=== PATIENT | female | born 1935 ===

== ENCOUNTER 2016-12-16 08:58 | Inpatient (IN) | payer MEDICARE, OTHER ==
[~2016-12-16] VITALS: Ht 167.6 cm; Wt 59.8 kg
--- NOTE | ~2016-12-16 | HP ---
PATIENT'S NAME: MAE MCARTHUR [facility] AGE: 81 Y [address] ROOM: [id number] [place], [place] [address] LOCATION: [facility] ADMIT DATE: 12/16/2016 History & Physical DISCHARGE DATE: FAMILY PHYSICIAN: Leda Peter MD ATTENDING PHYSICIAN: Bruce HAWKINS DATE OF SERVICE: CHIEF COMPLAINT: Diarrhea. HISTORY OF PRESENT ILLNESS: The patient is a 81-year-old female with a recent diagnosis of metastatic melanoma, diabetes mellitus, atrial fibrillation, history of DVT and PE, and TIA, who presents here to our emergency department with one-day history of acute diarrhea and weakness. The patient reports that since yesterday, she has been experiencing close to 15 bouts of diarrhea. She reports that her diarrhea started off with dark stool. For her diarrhea, the patient started using Pepto-Bismol and reports that her diarrhea has not gotten better and reports that her stool has gotten darker. She reports that prior to her diarrhea, she had chicken and rice that was cooked appropriately. She denies any sick contact, recent use of antibiotics, recent travel, and a drink from fresh water. She reports that her last antibiotic use was three months ago. The patient was unable to remember what antibiotic she took. The patient reports of mild abdominal discomfort, but denies pain, and she also denies fever, chills, nausea, vomiting, chest pain, shortness of breath, or dizziness. She reports that ever since her bouts of diarrhea, she has been feeling a little bit weak. The patient reports that she was recently diagnosed with metastatic melanoma after she was found to have a right groin lymph node. Right groin lymph node was biopsied and was found to be melanoma. The patient did not want to do any further treatment and was at one point, on with hospice care. However, since her condition did not get worse, she is out of hospice currently. The patient reports that she has had EGD a month ago and reports that it was not abnormal as much as she can remember and her last colonoscopy was a few years ago. Of note, the patient reports of a recent fall a few weeks ago and reports that she hit her right chest wall. She was evaluated by her PCP, with x-ray which did not show any fractures. The patient also reports that her Coumadin has not been therapeutic lately and reports that her last INR 3 weeks ago was 4.9. MEDICAL HISTORY: PATIENT'S NAME: MAE MCARTH[facility] AGE: 81 Y [address] ROOM: [address] [address] LOCATION: [facility] ADMIT DATE: 12/16/2016 History & Physical DISCHARGE DATE: FAMILY PHYSICIAN: Leda Peter MD ATTENDING PHYSICIAN: Bruce HAWKINS 1. Obstructive sleep apnea. 2. Diabetes mellitus, type 2. 3. Atrial fibrillation. 4. GERD. 5. Hyperlipidemia. 6. Anxiety. 7. Hard of hearing. 8. History of DVT and PE. 9. TIA. 10. Melanoma. PAST SURGICAL HISTORY: 1. Colonoscopy. 2. EGD. 3. Appendectomy. 4. Hernia repair. 5. Back surgery. 6. Right groin lymph node excision and biopsy. FAMILY HISTORY: Father had heart disease, and mother from stroke. SOCIAL HISTORY: The patient is a retired teacher. Has a distant history of smoking, but has not had smoked for 50 years and reports of occasional wine drinking. She has two kids and lives with her . MEDICATIONS: 1. [place] 5/325, 1 to 2 tablets p.o. every 4 hours. 2. Lipitor 40 mg p.o. nightly. 3. Calcium carbonate/vitamin D3, 600 mg p.o. daily. 4. Clonazepam 0.5 mg p.o. taken at nighttime. 5. Folbic tablets 1 tablet p.o. daily. 6. Bentyl 20 mg tablets taken with meal. 7. Lantus 15 units q.a.m. 8. Lisinopril 2.5 mg tablets p.o. daily. 9. Remeron 30 mg tablets taken at night. 10. Prilosec 20 mg p.o. daily. 11. Effexor XR 150 mg capsule, extended release in 24 hours. 12. Coumadin 5 mg taken once a day for 5 days and Coumadin 2.5 mg taken once a day for 2 days in a week. REVIEW OF SYSTEMS: All systems have been reviewed and are negative except for what was mentioned in the HPI. PATIENT'S NAME: MAE MCARTH[facility] AGE: 81 Y [address] ROOM: [facility] [place], [place] [address] LOCATION: [facility] ADMIT DATE: 12/16/2016 History & Physical DISCHARGE DATE: FAMILY PHYSICIAN: Leda Peter MD ATTENDING PHYSICIAN: Bruce HAWKINS PHYSICAL EXAMINATION: VITAL SIGNS: Temperature of 99.3 Fahrenheit, blood pressure of 124/81, heart rate of 96, respiratory rate 16, and patient is saturating 95% on room air. GENERAL APPEARANCE: The patient is an alert and awake, in no acute distress. HEENT: Head; normocephalic and atraumatic. Eyes; extraocular muscles intact. Sclerae nonicteric. Nose; no nasal discharge. Ears; the patient is hard of hearing. No discharge noted. The patient is currently not wearing her hearing aid. NECK: No JVD. Supple. CHEST: Clear to auscultation bilaterally. The patient noted to have mild-to- moderate scoliosis. HEART: Regular. S1 and S2. No murmur, rubs, or gallops heard. ABDOMEN: Soft, nontender, and nondistended. Bowel sounds present. No guarding. SKIN: Multiple actinic keratosis noted. EXTREMITIES: No edema. PULSES: Distal pulses present. MUSCULOSKELETAL: Range of motion intact. No obvious effusion or swelling around joints. 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 Motor and sensory grossly intact. LABORATORY DATA: Labs: Lactate of 1. White blood cell count of 9.8, hemoglobin of 10.7, hematocrit of 34.0, and platelet count of 414,000. Sodium of 143, potassium of 3, chloride of 107, bicarbonate is 27, BUN of 10, creatinine of 0.7, and blood glucose of 109. CRP of 15. Prolactin of 1. INR not calculated due to highly elevated PT. Repeat test of that was done which also shows incalculable INR due to elevation of PT. ASSESSMENT AND PLAN: The patient is a 81-year-old female with past medical history of recently diagnosed metastatic melanoma, atrial fibrillation, hyperlipidemia, and deep venous thrombosis and pulmonary embolism, on Coumadin who presents here with acute diarrhea with dark stools and weakness with elevated INR. 1. Acute diarrhea. The patient is presenting with acute diarrhea with dark stools. The etiology as of now is unknown, however, we would want to rule out any Clostridium difficile as the patient has some distant history of antibiotic use. We will await for stool cultures also and stool white blood cells. We will continue with IV fluid hydration and supplement potassium. 2. Elevated INR. The patient has a history of high INR recently. Last INR done 3 weeks ago was 4.9. Currently unable to calculate INR in our lab because of the elevated PT. Laboratory was drawn twice and it showed that it is incalculable. The patient reports of some dark stool, but she PATIENT'S NAME: MAE MCARTHUR [facility] AGE: 81 Y [address] ROOM: [id number] [place] [id number] LOCATION: [facility] ADMIT DATE: 12/16/2016 History & Physical DISCHARGE DATE: FAMILY PHYSICIAN: Leda Peter MD ATTENDING PHYSICIAN: Bruce HAWKINS has also used Pepto-Bismol. The caveat is that patient actually started having dark stool prior to Pepto-Bismol use. Given that we will try to give the patient 2 units of FFP to lower the INR down. We will repeat what the INR level is. The patient currently does not seem to have acute brisk bleeding. We will also acquire CT of head as patient has a history of malignant metastatic melanoma and two weeks history of fall and currently elevated INR. We will acquire a CT head to rule out any head bleed. We will repeat INR after giving 2 units of FFP. I discussed with the patient about FFP use and that she is at somewhat risk for pulmonary embolism and deep venous thrombosis. However, given the situation, the patient understands the risk and wants to proceed with the current treatment plan. 3. Generalized weakness. Etiology most likely secondary to diarrhea. We will keep the patient on IV fluids and once stable, we will have PT and OT see the patient. 4. Hypokalemia, most likely secondary to diarrhea. We will supplement potassium. 5. History of deep venous thrombosis and pulmonary embolism. Currently elevated INR. We will hold Coumadin for now. We will give the patient FFP. Discussed with the patient about switching anticoagulation. The patient seems to be interested on switching to NOAC anticoagulation. Discussion should be made when the patient is stable. The patient has not been therapeutic recently with Coumadin. 6. Paroxysmal atrial fibrillation. Currently holding Coumadin. 7. Diabetes mellitus, type 2, stable. We will continue home medication and add low sliding scale insulin. 8. Gastroesophageal reflux disease. Continue PPI. 9. Hyperlipidemia. Continue Lipitor. 10. Anxiety. Continue Effexor and clonazepam. I have personally reviewed the patient's medical record including but not limited to, blood work and radiology reports. Total time spent with the patient is greater than 70 minutes more than 50% of the time is spent in direct patient's care. Case reviewed with the patient. All questions were answered to the patient's satisfaction. MD VON VELEZ/darrin /[id number] D: 019 T: 033 HISTORY & PHYSICAL
--- NOTE | ~2016-12-16 | CON ---
PATIENT'S NAME: MAE MCARTHUR [facility] AGE: 81 Y [address] ROOM: [id number] [place], [place] [address] LOCATION: [facility] ADMIT DATE: 12/16/2016 Consultation DISCHARGE DATE: FAMILY PHYSICIAN: Leda Peter MD ATTENDING PHYSICIAN: Bruce DUKES REFERRING PHYSICIAN: JUDY TEJADA MD REFERRING PHYSICIAN: Dr. Bruce Dukes. HISTORY OF PRESENT ILLNESS: This is a 81-year-old female, who was originally admitted to the hospital through the emergency room with generalized weakness, diarrhea, and low-grade fever on December 16. She had been using Pepto-Bismol for her diarrhea. A GI consult for the diarrhea was obtained and since she had had an EGD a year ago as well as colonoscopy within the last 5 years, conservative treatment was elected. Stool cultures were obtained, they were negative for C. diff and negative for ova and parasite screen as well as negative for occult blood. She also had a urine culture done, which is positive for Klebsiella pneumoniae and Proteus mirabilis, for which she is now on the appropriate antibiotic therapy. Unfortunately, on 12/18/2016, she sustained a fall around 5 a.m. at the hospital and complained of pain in the left shoulder, for which she underwent open reduction and internal fixation of the left four-part partial humerus fracture. Biopsy of that bone of the left proximal humerus was obtained. She did receive one unit of packed red blood cells during surgery. The patient reports that she was having a dream where she thought she was getting up to go to the bathroom. She thought maybe she caught herself on some tubing or bedsheets when she was getting up. She was found by the nursing staff on the floor around 5 a.m. There was no report of loss of consciousness. She denies remembering any sensation of palpitations, lightheadedness, or dizziness. Today, 12/19/2016, we are consulted for a new SVT, which is regular and narrow complex and fairly rapid with rates in the 140 to 150 range. She does not feel any palpitations or lightheadedness with this. She denies feeling short of breath. There is no report of orthopnea or PND. She has never had any problems with peripheral edema. She denies any exertional chest discomfort or chest pain at rest with this. She has had a history of paroxysmal atrial fibrillation with an ablation that occurred in [place] approximately 8 years ago. She states because she was "cured" she has not followed up any more for this. PAST MEDICAL HISTORY: 1. Diabetes mellitus type 2. 2. Paroxysmal atrial fibrillation, post ablation in [place] around 2008. 3. Gastroesophageal reflux disease. PATIENT'S NAME: MAE MCAR[facility] AGE: 81 Y [address] ROOM: [id number] [place], [place] [address] LOCATION: [facility] ADMIT DATE: 12/16/2016 Consultation DISCHARGE DATE: FAMILY PHYSICIAN: Leda Peter MD ATTENDING PHYSICIAN: Bruce DUKES 4. Hyperlipidemia. 5. Anxiety. 6. Hearing loss. 7. History of DVT and pulmonary embolus, on long-term anticoagulation. 8. Metastatic melanoma. 9. Obstructive sleep apnea. 10. History of TIA x3. 11. Fall at the end of October at home, in which she hit her right chest wall, no fractures. PAST SURGICAL HISTORY: 1. Colonoscopy 5 years ago. 2. EGD within the last year. 3. Appendectomy. 4. Hernia repair. 5. Back surgery. 6. Right groin lymph node excision and biopsy showing melanoma. 7. Lap Marcelo. 8. Green filter placement. 9. Bilateral cataracts. 10. Mid urethral suspension x2. 11. Lumbar spine fusion. 12. Macular degeneration. 13. Intraocular lens implants. 14. Cardiac ablation in [place]. 15. D and C x2. 16. Tonsillectomy. ALLERGIES: SULFA. HOME MEDICATIONS: 1. Acetaminophen 500 mg every 6 hours. 2. Clonazepam 0.5 mg p.o. every h.s. 3. Dicyclomine 20 mg every day. 4. Lantus 18 units subcu every a.m. 5. Lisinopril 2.5 mg daily. 6. Ativan 0.5 mg every h.s. 7. Remeron 30 mg every h.s. 8. Artificial Tears p.r.n. 9. Effexor 150 mg every day. 10. Multivitamin or PreserVision AREDS one cap b.i.d. 11. Warfarin 5 mg 5 days a week and 2.5 mg 2 days a week. MEDICATIONS IN THE HOSPITAL: PATIENT'S NAME: MAE MCARTHUR [facility] AGE: 81 Y [address] ROOM: [id number] [place], [place] [address] [facility] ADMIT DATE: 12/16/2016 Consultation DISCHARGE DATE: FAMILY PHYSICIAN: Leda Peter MD ATTENDING PHYSICIAN: Bruce DUKES 1. Rocephin 1 gram IV daily. 2. Ativan 0.5 mg daily. 3. Bentyl 20 mg daily. 4. Effexor 150 mg every day. 5. Pradaxa 150 mg b.i.d. 6. Protonix 40 mg daily. 7. Levemir 5 units subcu every a.m. 8. NovoLog per sliding scale. FAMILY HISTORY: Mother , she had TIAs as well as a stroke. Father had heart disease. She has a sister, who had breast cancer. SOCIAL HISTORY: She is a retired teacher. Remote history of smoking, but has not smoked for 50 years. She smoked half a pack of cigarettes a day for 20 years, she quit in 1976. On occasion, she will have an alcoholic drink. She continues to live at home. REVIEW OF SYSTEMS: HEAD: No history of headaches. EYES: She wears corrective lenses. She has macular degeneration and has had cataract surgery. EARS: She is very hard of hearing and wears bilateral hearing aids. NOSE: No problems with epistaxis or rhinorrhea. MOUTH: No gingival bleeding. NECK: No difficulty with swallowing. PULMONARY: She has obstructive sleep apnea, but does not use her CPAP on a routine basis. GASTROINTESTINAL: Negative for nausea or vomiting, and her diarrhea has since cleared up. : Positive for urgency, frequency, and nocturia. She has problems with frequent urinary tract infections, which she is currently being treated for. MUSCULOSKELETAL: Now has a fractured left humerus. The biopsy is pending. NEUROLOGIC: She has had a couple of falls recently, but denies lightheadedness or dizziness. PSYCHIATRIC: She is a little down and depressed regarding all of the incidents that have happened to her. PHYSICAL EXAMINATION: VITAL SIGNS: She is 5 feet and 6 inches, weighs 128 pounds with a BMI of 20.7, her blood pressure is 128/70, heart rate 145 to 160, regular with a narrow complex tachycardia. GENERAL: She is alert. She appears calm and relaxed. SKIN: Warm and dry. Color is pink. PATIENT'S NAME: MAE MCAR[facility] AGE: 81 Y [address] ROOM: [id number] [place] [id number] LOCATION: [facility] ADMIT DATE: 12/16/2016 Consultation DISCHARGE DATE: FAMILY PHYSICIAN: Leda Peter MD ATTENDING PHYSICIAN: Bruce DUKES HEENT: Pupils were equal, they did react briskly. NECK: Soft and supple. No lymphadenopathy. No thyromegaly. JVD is flat. LUNGS: Lung sounds appeared clear without evidence of wheezes, rales, or rhonchi. CV: Regular with a normal S1 and S2 without murmur auscultated. No carotid bruits were noted. ABDOMEN: Soft. Bowel sounds are present. EXTREMITIES: Left arm is in a sling. Dressings are dry to the humerus. She has weak radial pulses and weak distal pulses. There is no peripheral edema noted. LABORATORY DATA: Her TSH is 0.69, lipase is 59, proBNP 2188, BUN is 9, creatinine 0.4, sodium 141, potassium is 3.8, and hemoglobin A1c is 6.5. ASSESSMENT: 1. Supraventricular tachycardia. We did give her a dose of adenosine to slow her down to see what the underlying rhythm was. It did show atrial flutter waves. Therefore, we started her on Cardizem per protocol and I gave her 300 mg of Rythmol and then she is to start Rythmol 150 mg p.o. t.i.d. 2. History of deep venous thrombosis with pulmonary embolism. She is on long-term anticoagulation for this. 3. We did check an echocardiogram. Assessment and plan, history of present illness, and physical exam are per Dr. Mumtaz Chery. I would like to thank Dr. Dukes for allowing us to participate in the patient's care. BOONE BAINS APRN FOR MD ROXANA BUCHANANP/darrin /[id number] CC: Leda Peter MD d: 12/20/161921 t: 01/09/17920, CONSULTATION REPORT
--- NOTE | ~2016-12-16 | ER ---
PATIENT'S NAME: MAE MCARTHUR [facility] AGE: 81 Y [address] ROOM: [place] [address] LOCATION: [facility] ADMIT DATE: 12/16/2016 ER/Outpatient Report DISCHARGE DATE: FAMILY PHYSICIAN: Leda Peter MD ATTENDING PHYSICIAN: Bruce DUKES Admission date and time documented on the medical record. I saw the patient at 0905 hours. CHIEF COMPLAINT: Generalized weakness, diarrhea, low-grade fever. HISTORY OF PRESENT ILLNESS: The patient is a 81-year-old female who was brought to the emergency room by private vehicle for evaluation. Thursday evening, she started having diarrhea that continued through all day Thursday and this morning. She has had 12+ diarrhea stools. They have been black and tarry, no bright red blood. Some mild nausea, but no vomiting. She kind of had just generalized weakness, little bit lightheaded at times. No syncope or near syncope. No headache; eyes, ears, nose, throat, neck, or spine pain. No fall or trauma. No recent colds, coughs, or flus. She has had a low-grade fever. Temperature, earlier it was 99.3 tympanic here in the emergency department. Really, she has not had any orthostatic changes or vertigo. No chest pain or shortness of breath. No abdominal pain. No urinary symptoms. No joint or muscle swelling, redness, or pain. No skin eruptions or rash. Does have insulin-dependent diabetes mellitus. No other endocrine problems. No history of neuro changes or psych issues. HOME MEDICATIONS: See attached medication list. ALLERGIES: SULFA. SOCIAL HISTORY: Nonsmoker. Occasional intake of alcohol. SIGNIFICANT PAST MEDICAL HISTORY: Obstructive sleep apnea, gastroesophageal reflux, depression, irritable bowel syndrome, insulin-dependent diabetes mellitus type 2, pulmonary embolism, and deep vein thrombosis, chronic anticoagulation with Coumadin, dyslipidemia, and colon polyps. OPERATIONS: Bladder suspension procedure, cystoscopy, Benedict filter placement, lumbar PATIENT'S NAME: MAE MCARTHUR [facility] AGE: 81 Y [address] ROOM: [place] [address] LOCATION: [facility] ADMIT DATE: 12/16/2016 ER/Outpatient Report DISCHARGE DATE: FAMILY PHYSICIAN: Leda Peter MD ATTENDING PHYSICIAN: Bruce DUKES fusion, cardiac catheterization, cardiac ablation, colonoscopy, and right inguinal lymph node biopsy. REVIEW OF SYSTEMS: All systems are reviewed by me are negative with the exception of those discussed in the history of present illness. PHYSICAL EXAMINATION: VITAL SIGNS: Temperature 99.3 tympanic, pulse 96, respirations 16, blood pressure 124/81, and O2 saturation on room air is 95%. HEENT: Head: Normocephalic. Eyes, Ears, Nose, Throat: Clear. Mucous membranes moist. NECK: Negative. SPINE: Negative. LUNGS: Clear. Good air flow. No rales, rhonchi, or wheezes. HEART: Regular. Pulses are palpable. ABDOMEN: Soft. Some mild tenderness in the mid abdomen to deep palpation. No organomegaly or abnormal masses palpable. Active bowel tones. No CVA tenderness. RECTAL: Negative. Blackish stool. Hemoccult was sent down to lab. EXTREMITIES: Without peripheral edema, cyanosis, or deformity. NEUROVASCULAR: Intact. SKIN: Clear. No skin eruptions or rash. LABORATORY DATA: Hemoccult was negative. Procalcitonin was 1.0. White count is 9800, 81 segs, 8 lymphs, 10 monos, 1 eosinophil; hemoglobin is 10.7; hematocrit 34.0; platelet count is 414,000. Pro-time was greater than 200; repeated, it was still greater than 200. Lactate was 1.0. CMS was normal except for low potassium 3.0, elevated glucose 109. Amylase and lipase were normal. CRP was 15.5. TSH was normal. I did order stool studies, but the patient did not give us a stool as yet. EMERGENCY DEPARTMENT COURSE: I did start the patient on IV normal saline fluids. Did give her potassium 40 mEq orally in the emergency department. IMPRESSION: 1. Acute onset diarrhea with generalized weakness. 2. Hyperanticoagulated state with pro-time greater than 200. The patient is chronically anticoagulated with Coumadin because of previous DVT and PE. 3. History of metastatic melanoma. 4. Obstructive sleep apnea. 5. Insulin-dependent diabetes mellitus type 2. 6. Dyslipidemia. PATIENT'S NAME: MAE MCARTHUR [facility] AGE: 81 Y [address] ROOM: [place] [address] LOCATION: [facility] ADMIT DATE: 12/16/2016 ER/Outpatient Report DISCHARGE DATE: FAMILY PHYSICIAN: Leda Peter MD ATTENDING PHYSICIAN: Bruce DUKES 7. History of depression. PLAN: Discussed the patient with hospitalist, Dr. Dukes. Dr. Dukes is coming to the emergency room to evaluate the patient and admit the patient to the hospital. See his dictation. I did discuss my findings and recommendations with the patient, she understands. MD BASILIA RODRÍGUEZ/derikl /[id number] d: 12/16/161954 t: 12/17/16 0604, OUTPATIENT REPORT
--- NOTE | ~2016-12-16 | CON ---
PATIENT'S NAME: MAE MCARTHUR [facility] AGE: 81 Y [address] ROOM: [id number] [place], [place] [address] [facility]ATION[facility] ADMIT DATE: 12/16/2016 Consultation DISCHARGE DATE: FAMILY PHYSICIAN: Leda Peter MD ATTENDING PHYSICIAN: Bruce DUKES DATE OF CONSULTATION: 12/17/2016 REFERRING PHYSICIAN: JUDY TEJADA MD REFERRING PROVIDER: Dr. Dukes. REASON FOR CONSULTATION: Diarrhea. HISTORY OF PRESENT ILLNESS: This is a very pleasant, 81-year-old female who presented to the emergency room with acute on chronic diarrhea. The patient has a history of metastatic melanoma; diabetes mellitus; atrial fibrillation, on long-term anticoagulation being Coumadin; history of DVT and pulmonary embolism; and TIA. The patient reports that on early Thursday morning, she began having significant urgent diarrhea that woke her up in the middle the night. She did state at that time her stool was dark. This continued with 15+ bouts of diarrhea within the day. She did take some Pepto-Bismol as her diarrhea continued to get "darker." The patient denies any associated nausea, vomiting, abdominal pain, or cramping. She does recall having a chicken and rice meal that was on Thursday or Thursday. She denies any recent antibiotic use, recent travel, or being around anybody who has been sick. She denies any current fever or chills. She does report being "hot and cold" at home. Denies any chest pain, shortness of breath, or chest pressure. She denies any relief from the Pepto-Bismol. She also states that she has had diarrhea "all my life, though nothing like this." In review of the patient's records, she last had a colonoscopy in July 2012 with random biopsies taken in lieu of diarrhea that were negative for microscopic colitis. She recently underwent an upper endoscopy on 11/05/2015 for GERD, Simmons's, and previous Marcelo. She was found to have no Simmons's noted, a slipped Marcelo, with small sliding hiatal hernia. All stool workup completed has been negative including occult stool, C diff, and O and P. Stool culture is pending at this time. The patient's INR was elevated on admission as well secondary to her Coumadin, we will wait for this to trend as well. PAST MEDICAL HISTORY: Atrial fibrillation, obstructive sleep apnea, diabetes mellitus, GERD, hyperlipidemia, anxiety, hard of hearing, history of DVT and PE, TIA, and metastatic melanoma. PATIENT'S NAME: MAE MCARTHUR [facility] AGE: 81 Y [address] ROOM: [place] [id number] LOCATION: [facility] ADMIT DATE: 12/16/2016 Consultation DISCHARGE DATE: FAMILY PHYSICIAN: Leda Peter MD ATTENDING PHYSICIAN: Brcue DUKES PAST SURGICAL HISTORY: Colonoscopy in 07/2012, upper endoscopy in 10/2015, appendectomy, hernia repair, back surgery, and right groin lymph node excision and biopsy. SOCIAL HISTORY: The patient is a retired teacher. She has a distant history of smoking, though reports no tobacco use in the last 50 years. She reports an occasional drink of wine. She has 2 kids and is . FAMILY HISTORY: The patient's father had heart disease. The patient's mother from a stroke. She denies any gastrointestinal diseases to her knowledge. ALLERGIES: SULFA. CURRENT MEDICATIONS: Please refer to the medication administration record. REVIEW OF SYSTEMS: A 10-point review of systems was completed. All were negative except for those identified in the History of Present Illness. PHYSICAL EXAMINATION: GENERAL: A very pleasant, 81-year-old elderly female, sitting in the chair, who appears to be in no acute distress. VITAL SIGNS: Temperature 97.8, pulse is 77, respirations 16, blood pressure 116/56, and oxygen saturation is 93% on room air. SKIN: [place], warm, and dry. No jaundice. HEENT: Head is normocephalic and atraumatic. Pupils equal, round, and reactive to light. Sclerae are clear, nonicteric. Oral mucosa is pink and moist. No thyromegaly. NECK: Soft and supple. CARDIOVASCULAR: Regular. Normal S1 and S2. RESPIRATORY: Respirations even and unlabored. Lungs clear to auscultation. ABDOMEN: Soft, round, nontender, and nondistended. Bowel sounds positive x4 quadrants. MUSCULOSKELETAL: No muscle weakness or atrophy. EXTREMITIES: No clubbing, cyanosis, or edema. NEUROLOGICAL: Grossly nonfocal. LABORATORY AND DIAGNOSTIC DATA: White blood cell count 9.8; hemoglobin of 10.7, down to 8.4; hematocrit of 34.0, down to 26.7; and platelets of 414. Chemistry panel includes a glucose of 101, BUN of 7, creatinine 0.4, sodium 144, potassium of 2.9, chloride of PATIENT'S NAME: MAE MCAR[facility]UR [facility] AGE: 81 Y [address] ROOM: [place] [id number] LOCATION: [facility] ADMIT DATE: 12/16/2016 Consultation DISCHARGE DATE: FAMILY PHYSICIAN: Leda Peter MD ATTENDING PHYSICIAN: Bruce DUKES 110, and CO2 of 26. Albumin of 2.4. Liver enzymes on admission were within normal limits. Prothrombin time 26.3 and INR is 2.48. Amylase 20 and lipase of 59. CRP elevated at 15.5. TSH is 0.698. Procalcitonin 1.0. ASSESSMENT AND PLAN: Again, this is a very pleasant, 81-year-old female who was recently admitted with acute on chronic diarrhea and weakness. In review of the records, the patient has recently undergone an upper endoscopy approximately a year ago as well as a colonoscopy within the last 5 years. The patient does report having some melena stool that was present prior to Pepto-Bismol administration. An upper endoscopy may be warranted for further evaluation, though we agree to treat this patient conservatively. We will recommend Imodium for assistance with the patient's diarrhea. Also, await stool cultures that are currently pending at this time. If no relief, the patient may warrant a colonoscopy, though we will wait for the patient's INR to retreat to within normal limits in lieu of the patient's previous Coumadin use. Further recommendations to be given over the patient's inpatient stay. This will be discussed with our hospitalist, Dr. Dukes, as well. Thank you for this consult and allowing us to participate in the care of this patient. DAVID CALDERON APRN FOR MD REGGIE KENNY/darrin /[id number] d: 12/17/16 1152 t: 12/29/16 1151, CONSULTATION REPORT
--- NOTE | ~2016-12-16 | DS ---
PATIENT'S NAME: MAE MCARTHUR [facility] AGE: 81 Y [address] ROOM: [id number] [place] [address] LOCATION: [facility] ADMIT DATE: 12/16/2016 Discharge Summary DISCHARGE DATE: 12/24/2016 FAMILY PHYSICIAN: Leda Peter MD ATTENDING PHYSICIAN: Bruce DUKES FINAL DIAGNOSES: 1. Acute diarrhea. 2. Excessive anticoagulation. 3. Atrial flutter. 4. Acute blood loss anemia due to presumed gastrointestinal bleed. 5. Left humerus fracture, status post open reduction and internal fixation by Dr. Bernard. 6. Acute hypoxic respiratory failure. 7. Insulin-dependent diabetes mellitus. 8. Long-term anticoagulation. 9. Klebsiella pneumoniae urinary tract infection. 10. Adult failure to thrive syndrome. 11. Metastatic malignant melanoma. 12. Obstructive sleep apnea. 13. History of deep venous thrombosis/pulmonary embolism. PROCEDURES PERFORMED: She did have an open reduction and internal fixation of the left humerus by Dr. Bernard on December 18. Please see Dr. Dukes's history and physical for details of admission, but the patient was admitted with diarrhea and excessive anticoagulation with a drop in her hemoglobin. LABORATORY DATA: On admission, sodium was 143, it remained very stable and was 138 at discharge. Potassium on admission was 3 and got as low as 2.9; it did gradually improve, and most prior to discharge was 4. BUN on admission was 10 and most prior to discharge was 9. Creatinine on admission was 0.7 and on discharge was 0.5. Her AST on admission was 19, ALT on admission was 13, alkaline phosphatase was 122, amylase was 20, and lipase was 59. Hemoglobin A1c is 6.5. C-reactive protein was 15.5. TSH was 1.81 and free T4 was 0.924. White blood cell count on admission was 9.8 with increase in neutrophils, hemoglobin was 10.7, hematocrit was 34, and platelet count was 414. Her protime was greater than 200. White blood cell count most prior to discharge was 10.7. Hemoglobin did drop throughout the hospital stay. She got as low as 8.4, but then did start to rebound, and most prior to discharge, her hemoglobin was 10.2. Platelet count on admission was 414 and discharge was 356. Her protime on admission as mentioned was greater than 200. After two units of FFP, her protime came back as 38.9 with an INR of 3.66. Procalcitonin on admission was 1. Urinalysis on admission had 20 to 50 whites and 0 to 2 reds. PATIENT'S NAME: MAE MCARTHUR [facility] AGE: 81 Y [address] ROOM: [place] [address] LOCATION: [facility] ADMIT DATE: 12/16/2016 Discharge Summary DISCHARGE DATE: 12/24/2016 FAMILY PHYSICIAN: Leda Peter MD ATTENDING PHYSICIAN: Bruce DUKES MICROBIOLOGY DATA: Her urine culture did grow Klebsiella pneumoniae and Proteus mirabilis. Stool cultures were all negative. RADIOLOGIC DATA: CT scan of the head done on admission did not show any cranial abnormality. CT scan done on the after a fall did not show any cranial abnormality. X-ray of the left shoulder did show that she had an acute comminuted and impacted left humeral head fracture with lateral displacement. CARDIOVASCULAR DATA: Echocardiogram on admission, her ejection fraction was 55% to 60%. She had [id number] concentric left ventricular hypertrophy and grade 1 diastolic dysfunction. HOSPITAL COURSE: The patient was admitted with a diagnosis of acute diarrhea. Stool cultures were obtained. A CT scan of her head was done because her INR was so prolonged. She was given two units of FFP right away. She was put on sliding-scale insulin. She was given a clear liquid diet and got started on IV Protonix. There was concern about acute blood loss. GI was consulted. GI did see her, and they did write for order of Imodium. They did not feel that she would require a colonoscopy. Her stools were negative. She was continued to be monitored closely. She was hypokalemic, this was replaced. She did suffer a fall on the morning of the . The patient was in bed and felt that she was acting out a dream. A CT scan was done, which did not show any intracranial abnormality. She was found to have a humerus fracture. Dr. Bernard did see her in consultation, and did take her to the Operating Room for an open reduction and internal fixation. Her hemoglobin did continue to drop. She was typed and crossed, and did receive 2 units of packed red blood cells. Postoperatively, she was returned to PCU, and overall did well. Her diarrhea did continue to improve. She was noted to be in supraventricular tachycardia with a fast rate. She did receive IV adenosine. Cardiology was asked to see her. Decision was made to do an echocardiogram. She was placed on a Cardizem bolus. After the results of this were obtained, she was given a dose of 300 mg of Rythmol and started on 150 mg twice daily. She was found to have a urinary tract infection, for which she received IV Rocephin. Her rates did come under better control. Her hemoglobin stabilized, and she did gradually improve. It was felt that she was going to need some placement. Once the results of the urine culture were obtained, she was taken off the Rocephin and put on oral Cipro, and did complete a three-day course of that. Adjustments in her Rythmol dose did need to be made. She was restarted on insulin to control her blood sugars. Decision was made to put her on Pradaxa with her arrhythmia. After further discussion and not being very clear exactly about the source of the bleeding, the decision was made to go to Eliquis 5 mg twice daily. 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 This was discussed with Dr. Renteria, and the patient did have a history of malignant melanoma and then refused treatment in the past. This result was concerning PATIENT'S NAME: MAE MCARTHUR [facility] AGE: 81 Y [address] ROOM: [place] [address] LOCATION: [facility] ADMIT DATE: 12/16/2016 Discharge Summary DISCHARGE DATE: 12/24/2016 FAMILY PHYSICIAN: Leda Peter MD ATTENDING PHYSICIAN: Bruce DUKES that her melanoma may have metastasized to her bone. This was shared with her and her family. They did not want to change anything or pursue any treatment. She did have an overnight trend oximetry prior to discharge, which showed that she did require oxygen. Arrangements were made for her to have oxygen at 2 L per nasal cannula at night. DISCHARGE INSTRUCTIONS: Follow up with Dr. Chery in two weeks, Dr. Bernard in two weeks, and Dr. Leda Peter in 3 to 5 days. She was weightbearing as tolerated except for left arm, there was no weightbearing. She is wearing the sling as necessary for comfort and oxygen at 2 L per nasal cannula at night. MEDICATIONS: Include 1. Eliquis 5 mg twice daily. 2. Klonopin 0.5 mg at bedtime. 3. Bentyl 20 mg daily. 4. NovoLog mild sliding scale. 5. Lantus 10 units subq daily. 6. Ativan 0.5 mg at bedtime. 7. Remeron 30 mg at bedtime. 8. Multivitamin twice daily. 9. Protonix 40 mg twice daily. 10. Rythmol 225 mg three times daily. 11. Effexor XR 150 mg daily. 12. Tylenol 500 mg to 1000 mg every six hours as needed for pain. 13. Glucagon 1 mg subq for hypoglycemia. 14. Glucose 16 g p.o. for hypoglycemia. 15. Percocet one to two tablets every 4 hours p.r.n. pain. She was sent with a script for 20. 16. PreserVision one caplet twice daily. 17. CPAP if she could tolerate it. 18. Artificial tears one drop in each eye as needed. DISCHARGE PLAN: Overall prognosis at discharge was fair. I discussed this discharge with Dr. Leda Peter, the patient's PCP, as well as Dr. Bernard for instructions regarding her humerus fracture. NESTOR GOMEZ MD LAW/modl /[id number] PATIENT'S NAME: MAE MCARTHUR [facility] AGE: 81 Y [address] ROOM: [place] [address] LOCATION: [facility] ADMIT DATE: 12/16/2016 Discharge Summary DISCHARGE DATE: 12/24/2016 FAMILY PHYSICIAN: Ldea Peter MD ATTENDING PHYSICIAN: Bruce DUKES CC: MD Leda Mariee MD Daniel J McGowan, MD d: 12/25/16512 t: 05/05/17 1931, DISCHARGE SUMMARY
--- NOTE | ~2016-12-16 | OR ---
PATIENT'S NAME: MAE CASTILLO [facility] AGE: 81 Y [address] ROOM: [place] [address] LOCATION: [facility] ADMIT DATE: 12/16/2016 OR/Procedure Report DISCHARGE DATE: FAMILY PHYSICIAN: Leda Peter MD ATTENDING PHYSICIAN: Bruce HAWKINS SURGEON: Juan Ramon Bernard MD STORAGE BATTERY INSPECTOR: Guru Jarvis PA-C. DATE OF PROCEDURE: 12/18/2016 PREOPERATIVE DIAGNOSIS: Left four-part proximal humerus fracture. POSTOPERATIVE DIAGNOSIS: Left four-part proximal humerus fracture. PROCEDURE: 1. Open reduction and internal fixation of left four-part proximal humerus fracture. 2. Bone biopsy of left proximal humerus. 3. Use of intraoperative fluoroscopy, less than 1 hour. ANESTHESIA: General endotracheal anesthesia. FLUIDS: One unit packed red blood cells. ESTIMATED BLOOD LOSS: 100 mL. SPECIMEN: Left bone biopsy. COMPLICATIONS: None. TOURNIQUET: None. DISPOSITION: Stable in PACU. COUNT: All counts were correct. IMPLANTS: Synthes left proximal humerus periarticular locking plate and screws. INDICATIONS: Ms. Castillo is a pleasant 81-year-old female who underwent the noted procedures above. The risks, benefits, and alternatives to pursuing a surgical intervention were discussed with the patient in detail. She elected to proceed with surgery. Anesthesia was consulted for their perioperative evaluation of the patient. DESCRIPTION OF PROCEDURE: The patient was taken from the holding area to the PATIENT'S NAME: MAE CASTILLO [facility] AGE: 81 Y [address] ROOM: [place] [address] LOCATION: [facility] ADMIT DATE: 12/16/2016 OR/Procedure Report DISCHARGE DATE: FAMILY PHYSICIAN: Leda Peter MD ATTENDING PHYSICIAN: Bruce HAWKINS operating room. Time-out was performed. General endotracheal anesthesia was administered. Ancef antibiotic was administered for perioperative prophylaxis. The left upper extremity was then prepped and draped in sterile fashion. Intraoperative fluoroscopy was introduced. I made a deltopectoral incision through the anterior aspect of the left shoulder through skin and subcutaneous tissue. I went down to the deltopectoral interval. I identified the proximal humerus in the fracture site. I subsequently debrided the fracture, closed reduced it, and provisionally pinned it in place. I introduced intraoperative fluoroscopy again and assessed my reduction. I subsequently selected a left proximal humerus periarticular locking plate and pinned it provisionally in place. I made sure the greater lesser tuberosity head and humeral shaft were all adequately reduced. I began by drilling for and placing a threaded cancellous screw into the head to achieve compression of the plate to the bone. I then used fully-threaded locking screws to obtain additional points of fixation. This was done by drilling for, measuring, and placing the screw. All screw lengths were confirmed fluoroscopically. Once I achieved proximal fixation, I had my personal injury legal assistant apply downward traction at the level of the elbow. I drilled for a compression screw in the shaft and subsequently achieved distal fixation in the shaft. I confirmed this fluoroscopically. Seeing the patient's bone was quite poor quality, I have decided to use locking screws to achieve distal fixation in the shaft. Final fluoroscopic images were taken revealing a successful open reduction and internal fixation of the left proximal humerus. The wound was then copiously irrigated with a normal sterile saline solution. I did obtain a bone biopsy and sent it for fixed specimen. The wound was then closed in layers beginning with 0 Vicryl suture, followed by 2-0 Vicryl suture, and Prineo to approximate the skin. A sterile Mepilex dressing was then placed on top of the left arm and the patient's arm was placed into a sling. The patient was then transferred to the operating table on to a stretcher and extubated. She was brought to the recovery room in stable condition. There were no intraoperative complications noted. Of note, my PA, Guru Jarvis, played an integral role in the intraoperative care of this patient. This included preoperative positioning, intraoperative expert retraction, and closing and dressing functions. PATIENT'S NAME: MAE CASTILLO [facility] AGE: 81 Y [address] ROOM: [place] [address] [facility] AD[facility] DATE: 12/16/2016 OR/Procedure Report DISCHARGE DATE: FAMILY PHYSICIAN: Leda Peter MD ATTENDING PHYSICIAN: Bruce HAWKINS IMPRESSION: The patient is status post the noted procedures above. PLAN: The patient will be nonweightbearing on the left upper extremity. I will encourage elbow, forearm, wrist, and hand range of motion. Postoperative antibiotics will be administered per routine. A postoperative CBC will be obtained postoperative day 1. Postoperative DVT prophylaxis will be per the Hospitalist Service. I will continue to monitor the patient closely postoperatively. MD UMA CAMEJO/darrin /[id number] d: 12/18/16 2332 t: 12/19/16 0739, OPERATIVE SUMMARY
--- NOTE | ~2016-12-16 | CON ---
PATIENT'S NAME: MAE CASTILLO [facility] AGE: 81 Y [address] ROOM: [address] [place] [address] LOCATION: GPCU ADMIT DATE: 12/16/2016 Consultation DISCHARGE DATE: 12/24/2016 FAMILY PHYSICIAN: Leda Peter MD ATTENDING PHYSICIAN: Bruce HAWKINS Corrected copy per physician 01/12/17 AO DATE OF CONSULTATION: 12/18/2016 REFERRING PHYSICIAN: JUDY TEJADA MD CHIEF COMPLAINT: Left shoulder and elbow pain. HISTORY OF PRESENT ILLNESS: Ms Castillo is a pleasant 81-year-old, right-hand dominant female, with multiple medical comorbidities, and history of malignant melanoma, who reports having a fall this morning in the hospital. The patient reports that she was having a dream where she thought she was getting up to go to the bathroom. At this for her, in fact, turned out to be a reality. She feels that she may have got and caught up in some of the tubing and bed sheets. She was found down by the nursing staff approximately 5:00 a.m. At that time, she complained of immediate left shoulder pain. There was a swelling discomfort and inability to move the left shoulder. Aggravating factors include manipulation of the arm, movement of the arm, attempted weightbearing to the arm. Alleviating factors include rest, ice, and elevation. The patient denies any previous trauma to the left shoulder or surgery to the shoulder. Currently, the patient denies any constitutional symptoms such as fever, chills, or night sweats. She also denies any dizziness, chest pain, shortness of breath, blurred vision, nausea, vomiting, or diarrhea. REVIEW OF SYSTEMS: A 10-point review of systems otherwise mentioned above in the HPI. The patient has issues with musculoskeletal, pertains to the left upper extremity. She has pain and tenderness to palpation and discomfort with range of motion of the left shoulder and elbow. PAST MEDICAL HISTORY: Includes obstructive sleep apnea, diabetes mellitus type 2, atrial fibrillation, GERD, hyperlipidemia, anxiety, hearing loss, history of DVT and PE, TIA melanoma. PAST SURGICAL HISTORY: Includes colonoscopy, EGD, appendectomy, hernia repair, back surgery, and right groin lymph node excision and biopsy. FAMILY HISTORY: PATIENT'S NAME: MAE CASTILLO [facility] AGE: 81 Y [address] ROOM: [address] [address] LOCATION: GPCU ADMIT DATE: 12/16/2016 Consultation DISCHARGE DATE: 12/24/2016 FAMILY PHYSICIAN: Leda Peter MD ATTENDING PHYSICIAN: Bruce HAWKINS Includes heart disease in the father side and her mother of a stroke. SOCIAL HISTORY: The patient is a retired middle school guidance counselor. She has a distant history of smoking, but has not smoked for more than 50 years. She drinks wine occasionally. She has two kids and lives with her . MEDICATIONS: Include, 1. [place]. 2. Lipitor. 3. Calcium carbonate. 4. Vitamin D. 5. Clonazepam. 6. Folbic. 7. Bentyl. 8. Lantus. 9. Lisinopril. 10. Remeron. 11. Prilosec. 12. Effexor. 13. Coumadin. PHYSICAL EXAMINATION: VITAL SIGNS: Temperature 99.3, blood pressure 124/81, heart rate 96, respiratory rate of 16, and O2 saturation 95% on room air. GENERAL APPEARANCE: She is awake, alert, and oriented x3. She is in no acute distress. She is actively conversing with me at the bedside. HEENT: Normocephalic and atraumatic. Extraocular movements are intact. PERRLA. Moist mucous membranes. Oropharyngeal airway is clear. NECK: Supple. Trachea midline. CARDIOVASCULAR: Regular rate and rhythm. CHEST: Normal symmetric respirations bilaterally. ABDOMEN: Soft, nontender, and nondistended. PELVIS: Stable. MUSCULOSKELETAL: Left upper extremity; focal examination of the patient's left upper extremity reveals there is tenderness to palpation about the shoulder girdle along with swelling. There is also tenderness to palpation at the left elbow with a skin laceration at the level of the olecranon. Compartments of the arm, forearm, and hand are soft. There is palpable radial pulse. There is good capillary refill in the digits. Sensation is intact to light touch through the AIN/PIN/median/radial/ulnar nerve distributions. There is good director franchise sales strength present. LABORATORY VALUES: PATIENT'S NAME: MAE CASTILLO [facility] AGE: 81 Y [address] ROOM: [id number] [place], [place] [address] LOCATION: GPCU ADMIT DATE: 12/16/2016 Consultation DISCHARGE DATE: 12/24/2016 FAMILY PHYSICIAN: Leda Peter MD ATTENDING PHYSICIAN: Bruce HAWKINS Includes CBC of hemoglobin 8.4, hematocrit 26.5, white blood cell count of 7.9, and platelet count of 319. Chem-7 of sodium 144, potassium 3.4, chloride 111, CO2 26, BUN 3, creatinine 0.4, glucose 53. Coagulation profile reveals a PTT of 16.7, INR of 1.58. IMAGING: Advanced imaging of the left shoulder in the form of a CT scan shows evidence of a displaced left proximal humerus fracture. IMPRESSION: 1. Left displaced proximal humerus fracture. 2. Left elbow skin laceration. 3. History of malignant melanoma in the setting of associated multiple medical comorbidities. PLAN: I had a long discussion with the patient in the presence of her regarding the left shoulder. Unfortunately, the patient sustained an unwitnessed fall here in the hospital. She was found down by the nursing staff. She complains of left shoulder pain. I did review the advanced diagnostic imaging with her and her today. She sustained a left displaced proximal humerus fracture. This does appear to be result of her mechanical fall and not necessarily the result of malignancy. I am recommending open reduction and internal fixation of left proximal humerus fracture. I discussed the risks, benefits, and alternatives of pursuing a surgical intervention with the patient and her in detail. I discussed the risks of anesthesia, infection, bleeding, and/or injury to neurovascular structures. I would also pursue a bone biopsy as well. The patient elected to proceed with surgery, informed consent was obtained. At this time, we will wait await medical clearance prior to proceeding with surgery. I have added her on for surgery this afternoon if she is cleared. Her INR is a 1.58 today, just come down from over 4. She will place in a sling for now, they may rest, ice, elevate the extremity. Pain medicine administered to address the left shoulder pain. Soft dressing to address the left elbow laceration has already been placed by the nursing staff. I have answered all the questions today at the bedside. We will proceed with surgery as soon as the patient is medically cleared. MD UMA CAMEJO/darrin PATIENT'S NAME: MAE CASTILLO [facility] AGE: 81 Y [address] ROOM: [place] [address] LOCATION: GPCU ADMIT DATE: 12/16/2016 Consultation DISCHARGE DATE: 12/24/2016 FAMILY PHYSICIAN: Leda Peter MD ATTENDING PHYSICIAN: rBuce HAWKINS /[id number] Corrected copy per physician 01/12/17 AO d: 12/18/16 1228 t: 01/12/17 1641, CONSULTATION REPORT
--- NOTE | ~2016-12-16 | PUL ---
PATIENT'S NAME: MAE MCARTHUR [facility] AGE: 81 Y [address] ROOM: [address] [address] LOCATION: GPCU ADMIT DATE: 12/16/2016 Pulmonary DISCHARGE DATE: 12/24/2016 FAMILY PHYSICIAN: Leda Peter MD ATTENDING PHYSICIAN: Bruce HAWKINS NAME OF PROCEDURE: Overnight Pulse Oximetry DATE OF PROCEDURE: December 23 to December 24, 2016 REASON FOR EXAM: Nocturnal hypoxemia RESULTS: The test was performed on room air. The recording and total valid sampling times were 9 hours, 17 minutes, and 44 seconds. The highest pulse was 111, lowest pulse was 77, with a mean pulse of 90. The highest SpO2 was 93%, lowest SpO2 was 79%, with a mean SpO2 of 87.5%. The patient spent 6 hours, 48 minutes, and 8 seconds with SpO2 less than 89%, representing 73.2% of the total sleep time. The desaturation event index was elevated at 11.2. PHYSICIAN INTERPRETATION: The patient has evidence of significant nocturnal hypoxia and would qualify for supplemental oxygen as per Medicare criteria. However because of the severity of her nocturnal hypoxia with an elevated desaturation event index, a sleep study is recommended at this time. MD SHAHBAZ SORIANO/uziel /[id number] dtt: 12/29/16 1103 , HAYDEN PEÑA dtd: 12/26/16 0733
--- NOTE | ~2016-12-16 | ECHO ---
Transthoracic Echocardiography Report (TTE) Demographics Patient Name MAE MCARTHUR Date of Study 12/19/2016 Patient Number [id number] Visit Number [id number] Date of 1935 Room Number G6318 Accession Number [id number] Gender Female Age 81 year(s) Referring Miri Wise MD Concrete Crusher Loader Operator [place] [facility], Physician Rome Conteh RVT, MD Physician Interpreting Miri Wise MD Community Education Specialist Physician Supervising Ordering Physician Miri Wise MD, MD/MLP Nurse Stress Jukebox Operator Conclusions Contractility Score Summary Normal Left Ventricular contractility was noted. Summary The estimated left ventricular ejection fraction is 55-60%. Mild to moderate concentric left ventricular hypertrophy. Diastolic assessment reveals Grade I diastolic dysfunction. Mild to moderately dilated right ventricle. The left atrium is mildly dilated by LA volume index measurement. There is mild pulmonary hypertension. The pulmonary pressure (RVSP) is 41 mmHg. Mild to moderate tricuspid regurgitation by color Doppler. Procedure Type of Study TTE procedure:2D Echocardiogram. Procedure Date Date: 12/19/2016 Start: 01:40 PM Study Location: Inpatient Portable Technical Quality: Fair due to patient immobility. Indications:Atrial fibrillation. Appropriate Use Criteria: 9 Patient Status: Routine Rhythm: Sinus tachycardia HR: 134 bpm BP: 129/86 mmHg M-Mode/2D Measurements LV Diastolic Dimension: 4.14 cm LV Systolic Dimension: 3.48 cm LV Septum Diastolic: 1.13 cm LV Septum Systolic: 3.51 cm LV PW Diastolic: 1.24 cm AO Root Dimension: 2 cm Cardiac Output: 8.77 l/min AV Cusp Separation: 1.1 cm RV Diastolic Dimension: 2.5 cm LA volume: 59 ml IVC Inspiration: 0.45 cm LVOT: 2.1 cm RV Base: 4.17 cm LVOT VTI: 18.9 cm RV Mid: 213 cm LV Stroke volume: 65.43 ml TAPSE: 2.29 cm TDI-S': 18 cm/s Doppler Measurements AV Peak Velocity: 2.4 m/s MV Peak E-Wave: 1.2 m/s AV Peak Gradient: 23.04 mmHg MV Peak A-Wave: 1.57 m/s AV Mean Gradient: 10 mmHg MV E/A Ratio: 0.76 LVOT Peak Velocity: 1.01 m/s MV P1/2t: 56 msec TR Velocity:3.12 m/s MV Deceleration Time: 169 msec Estimated RAP:3 mmHg PV Peak Velocity: 1.02 m/s Estimated RVSP: 42 mmHg PV Peak Gradient: 4.16 mmHg E' Septal Velocity: 0.08 m/s Estimated PASP: 41.94 mmHg E' Lateral Velocity: 0.09 m/s A' Septal Velocity: 0.1 m/s MV E/E' Ratio: 14 A' Lateral Velocity: 0.12 m/s Findings Left Ventricle Mild concentric left ventricular hypertrophy. Diastolic assessment reveals Grade I diastolic dysfunction. Right Ventricle Mild to moderately dilated right ventricle. Grossly normal right ventricular function. Left Atrium Normal left atrial size. Right Atrium Normal right atrial size. Mitral Valve Mild mitral regurgitation by color Doppler. Mild mitral annular calcification. Aortic Valve The aortic valve is mildly sclerotic. There is trivial aortic regurgitation by color Doppler. Tricuspid Valve There is mild pulmonary hypertension. The pulmonary pressure (RVSP) is 41 mmHg. Mild to moderate tricuspid regurgitation by color Doppler. Pulmonic Valve Normal pulmonic valve structure and function. Pericardial Effusion No evidence of pericardial effusion. Miscellaneous Visualized portions of the aortic root and ascending aorta appear normal in size. Pleural Effusion No evidence of pleural effusion. Contractility Score LV regional wall motion:(0-Non visualized 1-Normal 2-Hypokinesis 3-Akinesis 4-Dyskinesis 5-Aneurysm) Signature dtt: Frandy Chery (cardio) dtd: 12/19/16 0996 Physician Self Edit
[~2016-12-16 08:58] MED LIST: CALCIUM 600 +1 EAC4 PO; CLONAZEPAM0.5 MG PO; COUMADIN ** IA5 MG PO; CPAP INH; DICYCLOMINE HCL20 MG PO; EFFEXOR XR150 MG PO; FOLBIC TABLET1 EACH PO; LANTUS (IN100 UNIT/M SUB-Q; LIPITOR40 MG PO; LISINOPRIL2.5 MG PO; LOVENOX 6060 MG/0.6 SUB-Q; NORCO 5-325 MG1 TAB PO; PRESERVISION A1 EACH PO; PRILOSEC20 MG PO; REMERON 30 MG30 MG PO
[2016-12-16 09:42] LABS: BASOPHIL % 0.4 %; EOSINOPHIL # 0.1 K/uL (0.0-0.5); EOSINOPHIL % 0.6 %; HEMOGLOBIN 10.7 g/dL (10.0-15.0); IMMATURE GRANULOCYTE # 0.1 K/uL (0.0-0.3); IMMATURE GRANULOCYTE % 0.5 %; LYMPHOCYTE # 0.7 K/uL (0.8-4.0); LYMPHOCYTE % 7.6 %; MCH 27.4 pg (27.0-34.0); MCHC 31.5 gm/dL (32.0-36.5); MONOCYTE % 9.8 %; MPV 8.4 fl (9.4-12.4); NEUTROPHIL % 81.1 %; NRBC % 0 /100WBC (0-0.00); PLATELET COUNT 414 K/uL (150-450); RBC 3.91 M/uL (3.50-5.50); RDW-CV 13.1 % (11.9-14.6); WBC 9.8 K/uL (4.0-11.0)
[2016-12-16 10:05] LABS: ALK PHOS 122 IU/L (33-138); ALT 13 IU/L (12-78); AST 19 IU/L (10-40); BLOOD UREA NITROGEN 10 mg/dL (6-24); CALCIUM 8.7 mg/dL (8.5-10.5); CHLORIDE 107 mMol/L (96-110); CO2 27 mMol/L (22-32); CREATININE 0.7 mg/dL (0.5-1.1); ESTIMATED GFR (MDRD EQUATION) > 60; SODIUM 143 mMol/L (135-145); TOTAL BILIRUBIN 0.3 mg/dL (0.0-1.5); TOTAL PROTEIN 7.1 g/dL (6.0-8.4)
[2016-12-16 10:32] LABS: PROTIME > 200.0 SECONDS (9.8-11.4)
[2016-12-16 11:55] LABS: PROTIME > 200.0 SECONDS (9.8-11.4)
[2016-12-16] MEDS ORDERED: TYLENOL EXTRA500 MG PO (13:16)
[2016-12-16] MEDS ORDERED: ATIVAN 0.5MG0.5 MG PO (13:19)
[2016-12-16] MEDS ORDERED: ARTIFICIAL TEAR15 ML OPHTH (13:20)
--- NOTE | 2016-12-16 14:01 | NUR ---
Pt is 81 y/o female admit for diarrhea for the hospitalist. Allergy to sulfa. Red bracelet on. Pt alert and oriented x3. Came through ED. Hx DVT/PE,green- field filter,TIAx3,afib,htn,hypercholest,DM,balance problems,diverticulosis, frequent UTI's,stress incontin,mac.degeneration. See chart for complete hx. Resides at home with her . Stool cultures ordered. Pt in precautionary contact isolation until Cdiff is proven negative.
--- NOTE | 2016-12-16 17:21 | NUR ---
Significan event: A&O x3. Pale. Has not had a BM since being on the floor, we do still need a stool sample, orders are already put into [employer]. 2 Units of FFP given, with the second unit infusing currently. Will need to check INR 1 hour after this infusion is done. Patient is weak. Appetite has been good. On RA. Bowel sounds hyperactive. Family at bedside. HH Q12 hours. Follow Up: Continue current POC
[2016-12-16 19:35] LABS: HEMATOCRIT 30.3 % (33.0-46.0); HEMOGLOBIN 9.5 g/dL (10.0-15.0)
[2016-12-16 19:40] LABS: INR - (THERAPEUTIC) 3.66 (0.92-1.07)
[2016-12-16 19:41] LABS: PROTIME 38.9 SECONDS (9.8-11.4)
--- NOTE | 2016-12-17 05:09 | NUR ---
Significant Event: A/O x3. Afebrile. Denies pain. VSS on RA. SBP 110-130s. Had one loose stool, sent for cdiff sample-awaiting results. On cdiff precautions. GI to be consulted in am. Protonix started, Vitamin K given. After 2nd unit of FFP, INR 3.66. Normoactive bowel sounds. Follow up: Continue to monitor per plan of care.
[2016-12-17 06:32] LABS: HEMATOCRIT 26.7 % (33.0-46.0); HEMOGLOBIN 8.4 g/dL (10.0-15.0)
[2016-12-17 06:45] LABS: BLOOD UREA NITROGEN 7 mg/dL (6-24); CALCIUM 8.2 mg/dL (8.5-10.5); CHLORIDE 110 mMol/L (96-110); CO2 26 mMol/L (22-32); CREATININE 0.4 mg/dL (0.5-1.1); ESTIMATED GFR (MDRD EQUATION) > 60; PHOSPHORUS 2.4 mg/dL (2.5-4.9); SODIUM 144 mMol/L (135-145)
[2016-12-17 06:46] LABS: ALBUMIN 1.8 gm/dL (3.5-5.0); ANION GAP 10.9 (10.0-19.0); INR - (THERAPEUTIC) 2.48 (0.92-1.07); POTASSIUM 2.9 mMol/L (3.7-5.1); PROTIME 26.3 SECONDS (9.8-11.4)
[2016-12-17 16:18] LABS: BILIRUBIN URINE NEGATIVE (NEGATIVE); BLOOD URINE 150 /UL (NEGATIVE); COLOR URINE YELLOW (YELLOW); GLUCOSE URINE NEGATIVE (NEGATIVE); KETONE URINE NEGATIVE (NEGATIVE); LEUKOCYTES URINE 500 /UL (NEGATIVE); NITRITE URINE POSITIVE (NEGATIVE); PROTEIN URINE NEGATIVE (NEGATIVE); SPEC GRAVITY URINE 1.015 (1.003-1.035); TURBIDITY URINE CLEAR (CLEAR); UROBILINOGEN URINE NORMAL (NORMAL)
--- NOTE | 2016-12-17 16:33 | NUR ---
Significant events: Patient is alert and oriented. Forgetful at times. VSS. Lungs are clear and diminished. Saturations 90's on room air. Short of breath with activity. 40 meq IV and 40 meq PO potassium today. NS in left AC at 100 ml/hr. Right forearm IV started today; saline locked. Clear liquid diet. 2 loose stools today. Immodium PRN for diarrhea. Levemir decreased to 5 units. Follow up: Continue with current plan of care.
[2016-12-17 16:44] LABS: HEMATOCRIT 28.6 % (33.0-46.0)
[2016-12-17 17:01] LABS: RBC URINE 0-2 #/HPF (NEGATIVE); WBC URINE 20-50 #/HPF (NEGATIVE)
[2016-12-17 17:02] LABS: BACTERIA URINE MANY (NEGATIVE); MUCUS URINE 1+ (NEGATIVE)
[2016-12-17 23:26] LABS: HEMATOCRIT 26.9 % (33.0-46.0); HEMOGLOBIN 8.5 g/dL (10.0-15.0)
--- NOTE | 2016-12-18 04:45 | NUR ---
Significant Event: A/O x3. Afebrile. Denies pain. States she "still feels very weak". VSS on RA. SBP 140-150s. HRs 60-80s. LS clear/dim. Active bowel sounds. No BM during shift. Cooperative with cares.
[2016-12-18 04:54] LABS: BASOPHIL % 0.3 %; EOSINOPHIL # 0.2 K/uL (0.0-0.5); EOSINOPHIL % 1.9 %; HEMATOCRIT 26.5 % (33.0-46.0); HEMOGLOBIN 8.4 g/dL (10.0-15.0); IMMATURE GRANULOCYTE % 0.4 %; LYMPHOCYTE % 12.9 %; MCH 27.5 pg (27.0-34.0); MCHC 31.7 gm/dL (32.0-36.5); MCV 86.9 fl (83.0-98.0); MONOCYTE # 0.9 K/uL (0.0-1.0); MONOCYTE % 10.8 %; MPV 8.7 fl (9.4-12.4); NEUTROPHIL # (ANC) 5.9 K/uL (1.8-7.8); NEUTROPHIL % 73.7 %; NRBC % 0 /100WBC (0-0.00); RBC 3.05 M/uL (3.50-5.50); RDW-CV 13.2 % (11.9-14.6); WBC 7.9 K/uL (4.0-11.0)
[2016-12-18 04:56] LABS: PLATELET COUNT 319 K/uL (150-450)
[2016-12-18 05:06] LABS: INR - (THERAPEUTIC) 1.58 (0.92-1.07); PROTIME 16.7 SECONDS (9.8-11.4)
[2016-12-18 05:12] LABS: ANION GAP 10.4 (10.0-19.0); CALCIUM 7.9 mg/dL (8.5-10.5); CHLORIDE 111 mMol/L (96-110); CO2 26 mMol/L (22-32); CREATININE 0.4 mg/dL (0.5-1.1); ESTIMATED GFR (MDRD EQUATION) > 60; PHOSPHORUS 2.1 mg/dL (2.5-4.9); POTASSIUM 3.4 mMol/L (3.7-5.1); SODIUM 144 mMol/L (135-145)
[2016-12-18 05:17] LABS: ALBUMIN 1.6 gm/dL (3.5-5.0); BLOOD UREA NITROGEN 3 mg/dL (6-24)
--- NOTE | 2016-12-18 05:46 | NUR ---
Pt experienced unwitnessed fall. Was found on floor @ 0500. Skin tear left elbow. Pt states she hit her head but does not hurt. States left shoulder hurts. Pt lifted back to bed. MD notified, CT of head, left shoulder, and left elbow without contrast ordered. Patient sent down for CT. Attempted to call John Castillo - family member, no answer, left callback number. Pt increased to Ultrahigh fall risk, bed/chair alarms on at all times.
[2016-12-18 11:21] LABS: HEMATOCRIT 27.8 % (33.0-46.0); HEMOGLOBIN 8.8 g/dL (10.0-15.0)
--- NOTE | 2016-12-18 12:39 | NUR ---
Stopped by to talk with Pat, but was in talking with her. I reviewed her chart and talked with her RN. Pat did have a fall in the night resulting in a break so she will be going down for surgery later today. I will plan on seeing her tomorrow and talking with her more about her after hospital plans at that time. Prior to the fall, nursing tells me that he plan was to return home, but we will have to see if that is still the plan post surgery. CM to continue to follow and assist.
--- NOTE | 2016-12-18 16:38 | NUR ---
Significant Event: AOx3, forgetful at times. SBP 120s-140s, tachypneic at times, temp 99.1 & 99.0 at 2nd and 3rd assessments, sats >90% on room air. Lungs clear-dim. Fluids infusing to R) FA without complication. L) shoulder fracture; patient to surgery at this time for ORIF. 2 mg Morphine and 2 Percocet given this a.m. for pain with relief noted. Voids per bedpan this shift with adequate output. Pleasant and cooperative with cares. Follow up: Post surgical monitoring, otherwise per plan of care.
--- NOTE | 2016-12-19 01:00 | NUR ---
The patient had a scheduled surgery for fistula repair of the right arm with Dr. Ko on 12/18. The surgery went well and the patient was discharged around 1700. Soon after arriving at home the patient noticed bleeding around 1800 and went back to the ER. Dr. Ko redressed the upper wound and ordered to be admitted for observation. Shortly thereafter the lower arm began to bleed also. Ordered to re-inforce. The patient arrived on PCU at 2009 via wheelchair from ER. Ambulated with slight unsteadiness and weakness. Arrived with 02 at 3L (home doese 2.5-3L HS). All other VSS, afebrile. HX: CHF, diabetes, pacemaker, venous insufficiency. Allergies to Penicillin, amoxicillin.
[2016-12-19 04:53] LABS: BASOPHIL % 0.3 %; EOSINOPHIL # 0.1 K/uL (0.0-0.5); EOSINOPHIL % 0.8 %; HEMATOCRIT 30.9 % (33.0-46.0); HEMOGLOBIN 9.8 g/dL (10.0-15.0); IMMATURE GRANULOCYTE # 0.1 K/uL (0.0-0.3); IMMATURE GRANULOCYTE % 0.6 %; LYMPHOCYTE # 0.7 K/uL (0.8-4.0); LYMPHOCYTE % 6.6 %; MCH 27.3 pg (27.0-34.0); MCHC 31.7 gm/dL (32.0-36.5); MCV 86.1 fl (83.0-98.0); MONOCYTE # 0.9 K/uL (0.0-1.0); MONOCYTE % 8.5 %; MPV 8.4 fl (9.4-12.4); NEUTROPHIL # (ANC) 8.6 K/uL (1.8-7.8); NEUTROPHIL % 83.2 %; NRBC % 0 /100WBC (0-0.00); PLATELET COUNT 301 K/uL (150-450); RBC 3.59 M/uL (3.50-5.50); RDW-CV 13.5 % (11.9-14.6); WBC 10.3 K/uL (4.0-11.0)
[2016-12-19 05:04] LABS: INR - (THERAPEUTIC) 1.58 (0.92-1.07); PROTIME 16.7 SECONDS (9.8-11.4)
[2016-12-19 05:12] LABS: ANION GAP 11.8 (10.0-19.0); BLOOD UREA NITROGEN 3 mg/dL (6-24); CALCIUM 7.8 mg/dL (8.5-10.5); CHLORIDE 108 mMol/L (96-110); CO2 25 mMol/L (22-32); CREATININE 0.4 mg/dL (0.5-1.1); ESTIMATED GFR (MDRD EQUATION) > 60; POTASSIUM 3.8 mMol/L (3.7-5.1); SODIUM 141 mMol/L (135-145)
[2016-12-19 05:16] LABS: ALBUMIN 1.6 gm/dL (3.5-5.0)
--- NOTE | 2016-12-19 05:58 | NUR ---
Significant Event: HAS REMAINED IN BED TURNED Q2. 02 AT 2.5L TO KEEP SATS ABOVE 90%, UNABLE TO TITRATE OFF. RESPS 28, ALL OTHER VSS AFEBRILE. LEFT ORIF PROCEDURE FINISHED WITH DRESSING C/D/I, ARM SLING/IMMOBILIZER ON. ALMONTE WITH WITH 550 UOP AFTER UP FROM PACU. SHE HAS RESTED VERY WELL AND HAS RATED NO PAIN THROUGHOUT THE ENITIRE SHIFT. PLEASANT AND COOPERATIVE, NO COMPLICATIONS. NS INFUSING AT 100 ML/HR TO RIGHT JUGULAR. Follow up:
[2016-12-19 12:12] LABS: HEMATOCRIT 32.3 % (33.0-46.0); HEMOGLOBIN 10.2 g/dL (10.0-15.0)
--- NOTE | 2016-12-19 15:43 | NUR ---
A - PT SCREENED D/T LOS, AGE. S/P L) HUMERUS FX W/ ORIF. FORGETFUL @ TIMES. 1+ EDEMA. LABS: ACCUCHECK 65-REAS, GLU 126, BUN/CR 3/0.4, ALB 1.6, PHOS 2.0, CRP 15.5. MEDS: ROCEPHIN, SSI, LEVEMIR, PROTONIX, REMERON, BENTYL, EFFEXOR. HT: 66" WT: 138# BMI: 22.2. DIET: REG. INTAKE: 50-100%. NEEDS: 1791-7698 (25-30 KCAL/KG), 63-76 G PRO (1-1.2 G/KG), 1890 ML FLUID (30 ML/KG) D - INCREASED PRO NEEDS R/T HEALING AEB L) HUMERUS FX. I - GOAL FOR INTAKE 50-100% FOR DURATION OF STAY. WILL ADD ENSURE @ B TO INC NUTRIENT INTAKE. M/E - WILL MONITOR INTAKE F/U IN 4-6 DAYS.
[2016-12-19 17:03] LABS: HEMATOCRIT 32.2 % (33.0-46.0); HEMOGLOBIN 10.4 g/dL (10.0-15.0)
--- NOTE | 2016-12-19 18:45 | NUR ---
Significant Event: A/O x3, cooperative with cares. VS, SBPs 120-140s, HRs 90-150s, oxygen at 4 liters. No c/o pain. Telemetry called at approximately 0806 stating that patient's HRs were 140-150s but were unable to tell if patient was in sinus tach or a-fib/flutter. Dr. Smith notified et orders recieved. Dr. Adkins consulted. Adenosine given x1 et was determined that patient was in a-flutter. Cadizem bolus given followed by cardizem gtt per protocol. Patient converted to sinus rhythm at 1500; Dr. Adkins notified et cardizem gtt dc'd at 1530. Telemetry called at 1705 et stated that patient had went back into a-flutter with rates of 140. Dr. Adkins notified at 1708 et telemetry called at 1709 stating patient was back in sinus rhythm with HRs 90s. Dr. Adkins notified. Echo today with bubble study; EF 55-60%. De La Torre patent with 1600 ml of yellow urine out. PT/OT working with patient; up to chair. Follow up:
[2016-12-20 03:41] LABS: BASOPHIL % 0.4 %; EOSINOPHIL # 0.2 K/uL (0.0-0.5); EOSINOPHIL % 1.8 %; HEMATOCRIT 31.9 % (33.0-46.0); IMMATURE GRANULOCYTE % 0.4 %; LYMPHOCYTE # 0.7 K/uL (0.8-4.0); LYMPHOCYTE % 6.6 %; MCH 27.2 pg (27.0-34.0); MCHC 31.3 gm/dL (32.0-36.5); MCV 86.7 fl (83.0-98.0); MONOCYTE % 10.4 %; MPV 8.6 fl (9.4-12.4); NEUTROPHIL # (ANC) 7.9 K/uL (1.8-7.8); NEUTROPHIL % 80.4 %; NRBC % 0 /100WBC (0-0.00); PLATELET COUNT 323 K/uL (150-450); RBC 3.68 M/uL (3.50-5.50); RDW-CV 13.5 % (11.9-14.6); WBC 9.8 K/uL (4.0-11.0)
[2016-12-20 03:51] LABS: PROTIME 20.7 SECONDS (9.8-11.4)
[2016-12-20 03:52] LABS: INR - (THERAPEUTIC) 1.96 (0.92-1.07)
[2016-12-20 03:56] LABS: ANION GAP 8.3 (10.0-19.0); BLOOD UREA NITROGEN 2 mg/dL (6-24); CALCIUM 8.2 mg/dL (8.5-10.5); CHLORIDE 109 mMol/L (96-110); CO2 31 mMol/L (22-32); CREATININE 0.5 mg/dL (0.5-1.1); ESTIMATED GFR (MDRD EQUATION) > 60; PHOSPHORUS 2.2 mg/dL (2.5-4.9); POTASSIUM 3.3 mMol/L (3.7-5.1); SODIUM 145 mMol/L (135-145)
[2016-12-20 03:57] LABS: ALBUMIN 1.4 gm/dL (3.5-5.0)
--- NOTE | 2016-12-20 05:57 | NUR ---
Significant Event: Patient is alert/oriented x3, forgetful at times. She went back and forth from sinus rhythm to atrial fibrillation early on in the night but never sustained in atrial fibrillation. Currently in sinus rhythm with HR's 60-70's. Other vital signs are stable. Patient now on 2L O2 (down from 4L O2 at beginning of shift). De La Torre in place with 1700 mL UOP. Left arm in cast and sling, good CSM. Tylenol given x1 for headache, otherwise has denied any pain. Right jugular central line in place, flushes very well but has no blood return. Still doing hemoglobin/hematocrit checks q.6hr. They have been stable. Follow up: Continue to monitor per plan of care.
--- NOTE | 2016-12-20 17:20 | NUR ---
Significant Event: A/O x3, forgetful at times. VSS, SBPs 130-140s, HRs 80-100s, oxygen at 2 liters. No c/o pain. De La Torre patent with 340 ml of yellow urine with white sediment out this shift. Recieved 40 mEq of oral KCL in addition to 30 mmol of Kphos for a potassium level of 3.3 et et phosphorous level of 2.2. May have edema wear to L) hand. Care management consulted for placement. Up to bathroom with assist of 2; ambulate in room with physical therapy. Follow up: H/H every 12 hours, 0500 et 1700
[2016-12-20 17:43] LABS: HEMATOCRIT 31.7 % (33.0-46.0)
--- NOTE | 2016-12-21 03:50 | NUR ---
Significant Event:pt aaox3.can be forgetful at times. pleasant with staff and cares. transfers with 2 assist. did well with transfers. barbosa in place with no complication noted. pt rest well till 0136 hr in to the 150's. cardizem drip started as well as rythmol 300mg po now 1 time order. pt asymptomatic during this time. denies pain. pt cardizem now running at 5mg/hr and heart rate in the 90's. afebrile at this time. 02 per nasal cannula at 2L. Follow up:
[2016-12-21 05:44] LABS: BASOPHIL % 0.4 %; EOSINOPHIL # 0.2 K/uL (0.0-0.5); HEMATOCRIT 31.7 % (33.0-46.0); IMMATURE GRANULOCYTE # 0.1 K/uL (0.0-0.3); IMMATURE GRANULOCYTE % 0.7 %; LYMPHOCYTE # 0.8 K/uL (0.8-4.0); LYMPHOCYTE % 7.1 %; MCH 26.8 pg (27.0-34.0); MCHC 31.5 gm/dL (32.0-36.5); MONOCYTE % 9.2 %; MPV 8.7 fl (9.4-12.4); NEUTROPHIL # (ANC) 8.7 K/uL (1.8-7.8); NEUTROPHIL % 80.6 %; NRBC % 0 /100WBC (0-0.00); PLATELET COUNT 356 K/uL (150-450); RBC 3.73 M/uL (3.50-5.50); RDW-CV 13.5 % (11.9-14.6); WBC 10.7 K/uL (4.0-11.0)
[2016-12-21 06:01] LABS: INR - (THERAPEUTIC) 1.52 (0.92-1.07)
[2016-12-21 06:06] LABS: ANION GAP 10.9 (10.0-19.0); CHLORIDE 103 mMol/L (96-110); CO2 31 mMol/L (22-32); CREATININE 0.5 mg/dL (0.5-1.1); ESTIMATED GFR (MDRD EQUATION) > 60; PHOSPHORUS 2.6 mg/dL (2.5-4.9); POTASSIUM 3.9 mMol/L (3.7-5.1); SODIUM 141 mMol/L (135-145)
[2016-12-21 06:08] LABS: ALBUMIN 1.4 gm/dL (3.5-5.0); BLOOD UREA NITROGEN 7 mg/dL (6-24)
[2016-12-21 17:12] LABS: HEMATOCRIT 32.5 % (33.0-46.0); HEMOGLOBIN 10.3 g/dL (10.0-15.0)
--- NOTE | 2016-12-21 17:49 | NUR ---
Significant Event: A/O x3, cooperative with cares. VSS, SBPs 110-140s, HRs 70-80s, oxygen at 1 liter. No c/o pain. 20 mEq of oral KCl given today for a level of 3.9. Cardizem gtt dc'd at 1530; patient is in sinus rhythm with heart rates in the 80s. Up with 1-2 assist to chair. De La Torre patent with 1700 ml of yellow urine out this shift. Swelling to fingers on L) hand markedly decreased. Last Hgb 10.3 Follow up: continue to try et wean off O2; care management consult tomorrow regarding placement
--- NOTE | 2016-12-22 03:25 | NUR ---
Significant Event:pt aaox3. pleasant with staff and cares. tearful at times. vss. pt hr did jump to 140's however did not last longer then 2min. pt denies pain when asked. lung sounds clear, bowel sounds present. afebrile at this time. pt transfers with 2 assist gait belt pivot and does well. continues to be weak however strength is improving. contiues to wear 02 per nasal cannula at 2L. barbosa patent with clear yellow urine.uses call light approp. Follow up:
[2016-12-22 03:51] LABS: HEMATOCRIT 31.4 % (33.0-46.0); HEMOGLOBIN 9.8 g/dL (10.0-15.0)
[2016-12-22 04:02] LABS: ANION GAP 8.9 (10.0-19.0); BLOOD UREA NITROGEN 10 mg/dL (6-24); CALCIUM 8.3 mg/dL (8.5-10.5); CHLORIDE 105 mMol/L (96-110); CO2 29 mMol/L (22-32); CREATININE 0.4 mg/dL (0.5-1.1); ESTIMATED GFR (MDRD EQUATION) > 60; PHOSPHORUS 2.7 mg/dL (2.5-4.9); POTASSIUM 3.9 mMol/L (3.7-5.1); SODIUM 139 mMol/L (135-145)
[2016-12-22 04:04] LABS: ALBUMIN 1.4 gm/dL (3.5-5.0)
--- NOTE | 2016-12-22 14:06 | NUR ---
Introduced self and CM role to Pat, her and her son who were all at bedside. I let them know that I had visited with Dr. Golden in the hallway before coming in and also looked over her therapy note. Shared with them that it was recommended that Pat go to a SNF upon dismissal for therapy needs. All were in agreement with this recommendiation. They had no preference on which SNF in town I looked at for placement. did ask of TCU was an option. Let him know that TCU was closed so that wouldn't be an option. Pat states she is open to whichever facility will accept her. I did review her chart and notice that she only has Medicare [facility] for insurance so I let them know that we might have to look outside of [facility] depending on which facilities would work with her insurance. All were fine with this. No other questions, needs or concerns. CM to continue to follow and assist. CM did [facility] for potential SNF placement.
[2016-12-22 16:55] LABS: HEMATOCRIT 32.5 % (33.0-46.0); HEMOGLOBIN 10.1 g/dL (10.0-15.0)
--- NOTE | 2016-12-22 16:59 | NUR ---
Significant Event: A/O x3, cooperative with cares. VSS, SBPs 120-140s, HRs 90-100, oxygen at 2 liters; may wean to keep O2 sats >89% but patient does request O2 at night. Dr. Aguilar PA up to day; dressing changed to L) arm. 20 mEq of KCL given for a level of 3.9. Care management to consult for d/c plan. Up with assist of 2 et christelle walker; up to chair. De La Torre patent with 2100 ml out this shift. Follow up:
[2016-12-23 05:06] LABS: HEMATOCRIT 30.9 % (33.0-46.0); HEMOGLOBIN 9.6 g/dL (10.0-15.0)
--- NOTE | 2016-12-23 05:18 | NUR ---
Admitted for diarhea/weakness. Fell while here and fractured left humerus. had ORIF. Left arm in SUNIL and sling. UTI on admission. De La Torre patent. 1-2 assist with christelle walker. [place] glove for left hand. IV SL right hand. 2 ltrs O2. Can wean, patient requests O2 at [facility]. Looking for placement.
[2016-12-23 05:24] LABS: ANION GAP 10.2 (10.0-19.0); BLOOD UREA NITROGEN 11 mg/dL (6-24); CALCIUM 8.6 mg/dL (8.5-10.5); CHLORIDE 105 mMol/L (96-110); CO2 30 mMol/L (22-32); CREATININE 0.5 mg/dL (0.5-1.1); ESTIMATED GFR (MDRD EQUATION) > 60; PHOSPHORUS 3.2 mg/dL (2.5-4.9); POTASSIUM 4.2 mMol/L (3.7-5.1); SODIUM 141 mMol/L (135-145)
[2016-12-23 05:26] LABS: ALBUMIN 1.5 gm/dL (3.5-5.0)
--- NOTE | 2016-12-23 14:08 | NUR ---
A - NUTRITION F/U. GLU 129, ALB 1.9. 2+ EDEMA TO L) HAND, EDEMA GLOVE IN PLACE. S/P ORIF L) HUMERUS. DIET: REGULAR W/ ENSURE AT BF, INTAKE 0-50%. LOOKING FOR PLACEMENT. D - AT RISK W/ INADEQUATE ORAL INTAKE R/T DECREASED APPETITE AEB INTAKE RECORD. I - GOAL: 50% OR BETTER INTAKE BY DISMISSAL. M/E - WILL INCREASE ENSURE TO BID. F/U IN 2-4 DAYS.
--- NOTE | 2016-12-23 15:31 | NUR ---
Call from Antoinette at [facility]. They will accept on Thursday at 1230, OK van to transport. Updated Pat, her and her son. They were all in agreement with this plan. Packet started, orders printed and ID Screen is complete in the packet. I update GIOVANI Wright and Dr. Golden to her being accepted to [facility]. In talking with Antoinette, I did ask if she happened to get insurance auth for her to come to them. Per Antoinette, she didn't think a pre-auth was needed for her Medicare [employer]. I encouraged her to call and check for sure and if it was needed to please do that so we didn't run into any issues down the road. She voiced understanding to this and was going to check into it. Also let her know that O2 would need to come with them in the van so Pat could use that for transport. No other questions, needs or concerns. CM to continue to follow and assist. Plan for dismissal to [facility] tomorrow at 1230.
[2016-12-23 16:50] LABS: HEMATOCRIT 32.8 % (33.0-46.0); HEMOGLOBIN 10.4 g/dL (10.0-15.0)
--- NOTE | 2016-12-23 19:03 | NUR ---
Significant Event: A/O x3, cooperative with cares. VSS SBPs 110-130s, HRs 80-90s, on room air. No c/o pain. Barbosa patent with clear yellow urine out. Up with 1-2 assist et christelle walker. L) arm remains in dressing with envelope sling. Follow up: d/c barbosa; transfer to [facility] tomorrow at 1230
[2016-12-24 05:23] LABS: HEMATOCRIT 32.1 % (33.0-46.0); HEMOGLOBIN 10.2 g/dL (10.0-15.0)
--- NOTE | 2016-12-24 05:23 | NUR ---
Significant Event: DENIES PAIN ALL NIGHT. UP WITH 1 ASSIST TO GET BACK TO BED. SLEPT WELL OVERNIGHT. TREND OX PERFORMED. SATS HUNG AROUND THE UPPER 80s MOST OF THE NIGHT WHILE ON TREND OX. L) ARM REMAINS WARM TO THE TOUCH AND HAS A GOOD RADIAL PULSE. GAGE REMOVED THIS AM AT 0455. Follow up:
[2016-12-24 05:36] LABS: BLOOD UREA NITROGEN 9 mg/dL (6-24); CALCIUM 8.5 mg/dL (8.5-10.5); CHLORIDE 103 mMol/L (96-110); CO2 28 mMol/L (22-32); CREATININE 0.5 mg/dL (0.5-1.1); ESTIMATED GFR (MDRD EQUATION) > 60; PHOSPHORUS 2.9 mg/dL (2.5-4.9); SODIUM 138 mMol/L (135-145)
[2016-12-24 05:38] LABS: ALBUMIN 1.6 gm/dL (3.5-5.0)
--- NOTE | 2016-12-24 11:36 | NUR ---
Patient is A/Ox3. Forgetful at times. [id number]. P-80-100s. Afebrile. Room air during the day. Up with 1A/cane. L) arm sling. Shoulder incision covered with mepilex dressing, D/I. Alden wrap to arm. Dressing to R) neck from old central line, may take dressing off at bedtime tonight. Stress incontinence at times. Had last BM 12/23. Pleasant and cooperative with cares.
--- NOTE | 2016-12-24 14:02 | NUR ---
Social visit with Pat and her this morning. They are both still in agreement with her going to [place] today at 1230 via [employer] van. Orders were filled out and faxed over to [facility] prior to her leaving. RN to RN number was given to GIOVANI Rico to call in report. No other questions, needs or concerns. CM to continue to follow and assist.
--- NOTE | 2016-12-31 23:47 | NUR ---
THE ADMISSION NOTE FROM THE NURSE WITH [facility] AT 0100 WAS WRITTEN ON THE WRONG PATIENT. ATTEMPTED TO UNDOE IT BUT THE PATIENT HAS BEEN DISCHARGED. THEREFORE THE NOTE COULD NOT BE UNDONE.
== END 2016-12-24 12:30 | DRG 981 ==
LOC: GMED 08:58 → GPCU 11:43
PROVIDERS: Emergency Medicine; Internal Medicine; ADMIT Internal Medicine
PROC: 30233N1 Transfusion of Nonautologous Red Blood Cells into Peripheral Vein, Percutaneous Approach (ICD-10-PCS; principal; 2016-12-18)
PROC: 0PBD0ZX Excision of Left Humeral Head, Open Approach, Diagnostic (ICD-10-PCS; principal; 2016-12-18)
PROC: 0PSD04Z Reposition Left Humeral Head with Internal Fixation Device, Open Approach (ICD-10-PCS; principal; 2016-12-18)
PROC: B246ZZZ Ultrasonography of Right and Left Heart (ICD-10-PCS; 2016-12-19)
PROC: 3E0F7GC Introduction of Other Therapeutic Substance into Respiratory Tract, Via Natural or Artificial Opening (ICD-10-PCS; 2016-12-23)
DX: K92.2 Gastrointestinal hemorrhage, unspecified (principal); J96.01 Acute respiratory failure with hypoxia; C79.9 Secondary malignant neoplasm of unspecified site; J44.9 Chronic obstructive pulmonary disease, unspecified; N39.0 Urinary tract infection, site not specified; M87.3 Other secondary osteonecrosis; I48.0 Paroxysmal atrial fibrillation; I47.1 Supraventricular tachycardia; D62 Acute posthemorrhagic anemia; S42.209A Unspecified fracture of upper end of unspecified humerus, initial encounter for closed fracture; K58.0 Irritable bowel syndrome with diarrhea; B96.1 Klebsiella pneumoniae [K. pneumoniae] as the cause of diseases classified elsewhere; E11.9 Type 2 diabetes mellitus without complications; E87.6 Hypokalemia; F41.9 Anxiety disorder, unspecified; K21.9 Gastro-esophageal reflux disease without esophagitis; W18.30XA Fall on same level, unspecified, initial encounter; Y92.239 Unspecified place in hospital as the place of occurrence of the external cause; Z66 Do not resuscitate; Z79.01 Long term (current) use of anticoagulants; Z79.4 Long term (current) use of insulin; G47.33 Obstructive sleep apnea (adult) (pediatric); R62.7 Adult failure to thrive; Z86.718 Personal history of other venous thrombosis and embolism; Z86.711 Personal history of pulmonary embolism; Z85.820 Personal history of malignant melanoma of skin; H91.90 Unspecified hearing loss, unspecified ear; E78.5 Hyperlipidemia, unspecified; Z86.73 Personal history of transient ischemic attack (TIA), and cerebral infarction without residual deficits
CPT/HCPCS: C1713; C9113; G0237; J0153; J0696; J2270; J3480; J7030; J7050; P9016; P9017